=== PATIENT | male | born 1945 | race Caucasian/White ===

== ENCOUNTER 2022-03-09 17:48 | Emergency (ER) | payer MEDICARE ==
[2022-03-09] MEDS ORDERED: Lidocaine 2% 20 ml MDV ONE (20:12)
[2022-03-09] MEDS ORDERED: Boostrix 0.5 ML (Tdap) VIAL ONE (20:30)
[2022-03-09] MEDS ORDERED: Bacitracin 1 PK ONE (20:41)
[2022-03-09] MEDS ORDERED: Cephalexin 250 MG CAP ONE (20:41)
== END 2022-03-09 20:51 | disposition home or self-care (01) ==
LOC: MADERS 17:48
DX: S61.217A Laceration without foreign body of left little finger without damage to nail, initial encounter (principal); S61.216A Laceration without foreign body of right little finger without damage to nail, initial encounter; Z23 Encounter for immunization; W26.8XXA Contact with other sharp object(s), not elsewhere classified, initial encounter; Y92.009 Unspecified place in unspecified non-institutional (private) residence as the place of occurrence of the external cause
CPT/HCPCS: 12002; 90471; 90715

== ENCOUNTER 2022-04-20 11:51 | Emergency (ER) | payer MEDICARE ==
[~2022-04-20 11:51] MED LIST: Iopamidol 370 76% 125 ML VIAL FS ONE; Sodium Chloride 0.9% 100 ML BAG ONE
[2022-04-20 12:34] LABS: #Basophils 0.1 thou/uL (0.0-0.2); #Lymphocytes 1.1 thou/uL (1.20-3.40); #Monocytes 0.4 thou/uL (0.11-0.59); #Neutrophils 3.4 thou/uL (1.40-6.50); %Basophils 1.8 % (0.0-1.0); %Eosinophils 0.5 % (0.0-10.0); %Lymphocytes 21.3 % (21.0-51.0); %Monocytes 8.8 % (0.0-10.0); %Neutrophils 67.6 % (42.0-75.0); Hemoglobin 15.4 g/dL (14.0-18.0); Mean Corpuscular HGB CONC 32.5 g/dL (32.0-36.0); Mean Corpuscular Hemoglobin 28.5 pg (27.0-31.0); Mean Corpuscular Volume 87.6 fL (78.0-98.0); Mean Platelet Volume 8.1 fL (7.4-10.4); Platelet Count 180 thou/uL (130-400); RBC Distribution Width 12.7 % (11.5-14.5); Red Blood Cell (RBC) Count 5.38 mill/uL (4.70-6.10)
[2022-04-20] MEDS ORDERED: Aspirin Chewable 81 MG TAB ONE (12:44)
[2022-04-20] MEDS ORDERED: methylPREDNISolone Sod Succ/PF 125 MG/2 ML VIAL ONE (12:44)
[2022-04-20 13:20] LABS: ALT (SGPT) 21 U/L (8-55); AST (SGOT) 23 U/L (5-34); Albumin 4.3 g/dL (3.4-4.8); Alkaline Phosphatase 61 U/L (40-110); Anion Gap 13 mmol/L (10-20); BUN (Urea Nitrogen) 15 mg/dL (8.4-25.7); Bilirubin, Total 0.3 mg/dL (0.2-1.2); Calc. Creatinine Clearance 0 mL/min (70-130); Calcium 9.3 mg/dL (7.8-10.44); Carbon Dioxide 28 mmol/L (23-31); Chloride 103 mmol/L (98-107); Globulin 2.7 g/dL (2.4-3.5); Glucose 92 mg/dL (83-110); Potassium 3.9 mmol/L (3.5-5.1); Sodium 140 mmol/L (136-145)
[2022-04-20 17:20] LABS: Troponin I 0.013 ng/mL (< 0.028)
[2022-04-20 17:51] LABS: SARS-CoV-2 NAA Rapid Test DETECTED (NotDetected)
== END 2022-04-20 17:35 | disposition short-term general hospital (02) ==
LOC: MADERS 11:51
DX: U07.1 COVID-19 (principal); R07.2 Precordial pain
CPT/HCPCS: 71045; 71275; 80053; 83880; 84484; 85025; 85379; 93005; 96374; J2930; Q9967

== ENCOUNTER 2022-04-23 12:12 | Emergency (ER) | payer MEDICARE ==
[2022-04-23 13:18] LABS: #Basophils 0.1 thou/uL (0.0-0.2); #Lymphocytes 1.6 thou/uL (1.20-3.40); #Monocytes 0.5 thou/uL (0.11-0.59); #Neutrophils 2.5 thou/uL (1.40-6.50); %Basophils 1.1 % (0.0-1.0); %Eosinophils 0.8 % (0.0-10.0); %Lymphocytes 33.5 % (21.0-51.0); %Monocytes 10.5 % (0.0-10.0); %Neutrophils 54.1 % (42.0-75.0); Hemoglobin 15.9 g/dL (14.0-18.0); Mean Corpuscular HGB CONC 32.4 g/dL (32.0-36.0); Mean Corpuscular Hemoglobin 28.3 pg (27.0-31.0); Mean Corpuscular Volume 87.4 fL (78.0-98.0); Mean Platelet Volume 8.9 fL (7.4-10.4); Platelet Count 164 thou/uL (130-400); RBC Distribution Width 12.2 % (11.5-14.5); Red Blood Cell (RBC) Count 5.63 mill/uL (4.70-6.10); White Blood Cell (WBC) Count 4.7 thou/uL (4.8-10.8)
[2022-04-23 13:33] LABS: ALT (SGPT) 28 U/L (8-55); AST (SGOT) 29 U/L (5-34); Alkaline Phosphatase 57 U/L (40-110); Anion Gap 17 mmol/L (10-20); BUN (Urea Nitrogen) 16 mg/dL (8.4-25.7); Bilirubin, Total 0.3 mg/dL (0.2-1.2); CK (CPK) 119 U/L (30-200); Calc. Creatinine Clearance 0 mL/min (70-130); Calcium 9.5 mg/dL (7.8-10.44); Carbon Dioxide 25 mmol/L (23-31); Chloride 103 mmol/L (98-107); Globulin 2.9 g/dL (2.4-3.5); Glucose 108 mg/dL (83-110); Potassium 3.9 mmol/L (3.5-5.1); Protein, Total 6.9 g/dL (5.8-8.1); Sodium 141 mmol/L (136-145)
== END 2022-04-23 16:58 | disposition short-term general hospital (02) ==
LOC: MADERS 12:12
DX: U07.1 COVID-19 (principal); R07.2 Precordial pain
CPT/HCPCS: 36415; 71045; 80053; 82550; 83605; 84484; 85025; 93005